=== PATIENT | male | born 1970 | race Caucasian/White ===

== ENCOUNTER 2017-04-22 18:08 | Emergency (ER) | payer OTHER ==
[~2017-04-22] VITALS: Ht 177.8 cm; Wt 106.6 kg
[2017-04-22] MEDS ORDERED: ASPIR-LOW81 MG PO (18:51)
[2017-04-22] MEDS ORDERED: LIPITOR40 MG PO (18:52)
[2017-04-22] MEDS ORDERED: OMEPRAZOLE20 MG PO (18:52)
[2017-04-22] MEDS ORDERED: NORCO 5-325 TA1 EACH PO (20:50)
== END 2017-04-22 21:10 | disposition home or self-care (01) ==
LOC: ED 18:08
DX: S82.144A Nondisplaced bicondylar fracture of right tibia, initial encounter for closed fracture (principal); K21.9 Gastro-esophageal reflux disease without esophagitis; F17.200 Nicotine dependence, unspecified, uncomplicated; Z79.82 Long term (current) use of aspirin; Z79.899 Other long term (current) drug therapy; V27.4XXA Motorcycle driver injured in collision with fixed or stationary object in traffic accident, initial encounter; Y92.480 Sidewalk as the place of occurrence of the external cause
CPT/HCPCS: 73560; 96372; 99283; J2270

== ENCOUNTER 2017-04-25 21:02 | Emergency (ER) | payer OTHER ==
[~2017-04-25] VITALS: Ht 177.8 cm; Wt 106.6 kg
[~2017-04-25 21:02] MED LIST: ASPIR-LOW81 MG PO; LIPITOR40 MG PO; NORCO 5-325 TA1 EACH PO; OMEPRAZOLE20 MG PO
[2017-04-25] MEDS ORDERED: NORCO 5-325 TA1 EACH PO (23:27)
[2017-04-25] MEDS ORDERED: CRUTCH1 EACH (23:27)
== END 2017-04-25 23:49 | disposition home or self-care (01) ==
LOC: ED 21:02
DX: S82.201D Unspecified fracture of shaft of right tibia, subsequent encounter for closed fracture with routine healing (principal); Z76.0 Encounter for issue of repeat prescription; K21.9 Gastro-esophageal reflux disease without esophagitis; F17.200 Nicotine dependence, unspecified, uncomplicated; Z79.82 Long term (current) use of aspirin; Z79.899 Other long term (current) drug therapy; X58.XXXD Exposure to other specified factors, subsequent encounter
CPT/HCPCS: 99281